=== PATIENT | male | born 1960 | race Two or more races ===

== ENCOUNTER 2025-03-14 16:27 | Inpatient (IN) | payer MEDICARE, OTHER ==
[~2025-03-14] VITALS: Ht 175.3 cm; Wt 93.0 kg
[2025-03-14 17:17] LABS: PLATELET COUNT (AUTO) 234 K/uL (150-450); RED BLOOD CELL COUNT(AUTO) 4.89 MIL/uL (4.5-6.0); RED CELL DISTRIBUTION WIDTH 23.8 % (11.5-15.0); WHITE BLOOD COUNT (AUTO) 5.4 K/uL (4.3-11.0)
[2025-03-14 17:18] LABS: APPEARANCE,URINE CLOUDY (CLEAR); BLOOD, URINE NEGATIVE Ery/uL (NEGATIVE); LEUKOCYTE ESTERASE ,URINE NEGATIVE (NEGATIVE); NITRITE, URINE NEGATIVE (NEGATIVE); UGLUCOSE NEGATIVE (NEGATIVE)
[2025-03-14 17:25] LABS: CALCIUM, SERUM 9.4 mg/dL (8.5-10.1); CREATININE 0.9 mg/dL (0.6-1.3); SODIUM SERUM 143 mmol/L (136-145); UREA NITROGEN, BLOOD 15 mg/dL (7-18)
[2025-03-14 17:30] LABS: ASPARTATE AMINOTRANSFERASE 25 U/L (15-37); TOTAL PROTEIN, SERUM 7.1 g/dL (6.4-8.2)
[2025-03-14 17:32] LABS: ADD URINE CULTURE NO; SQUAMOUS EPITHELIAL CELL,UR Few /HPF (None Seen)
[2025-03-14 17:33] LABS: AMPHETAMINE, URINE NEGATIVE (NEGATIVE); BARBITURATE, URINE NEGATIVE (NEGATIVE); BENZODIAZEPINE, URINE NEGATIVE (NEGATIVE); CANNABINOID, URINE NEGATIVE (NEGATIVE); COCCAINE, URINE NEGATIVE (NEGATIVE); OPIATE, URINE NEGATIVE (NEGATIVE); URINE AMORPHOUS URATE Many /HPF (None Seen)
[2025-03-14] MEDS ORDERED: TOPI100T38 PO (17:52)
[2025-03-14] MEDS ORDERED: APIX5TAB PO (17:52)
[2025-03-14] MEDS ORDERED: ACET-2030 PO (17:52)
[2025-03-14] MEDS ORDERED: OMEP40CA21 PO (17:52)
[2025-03-14] MEDS ORDERED: MONT10TA22 PO (17:52)
[2025-03-14] MEDS ORDERED: PARO30TA74 PO (17:52)
[2025-03-14] MEDS ORDERED: BENZ1TAB7 PO (17:52)
[2025-03-14] MEDS ORDERED: OXYC5TAB3 PO (17:52)
[2025-03-14] MEDS ORDERED: TAMS-12 PO (17:52)
[2025-03-14] MEDS ORDERED: ATOR40TA PO (17:52)
[2025-03-14] MEDS ORDERED: MAG HYDROX/AL HYDROX/SIMETH 30 ML UDC PO PRN (18:00)
[2025-03-14] MEDS ORDERED: MAGNESIUM HYDROXIDE 30 ML UDC PO PRN (18:00)
[2025-03-14] MEDS: HYDROCODONE/APAP 5/325MG TABLET PO PRN (18:09)
[2025-03-14] MEDS: BLOOD SUGAR DIAGNOSTIC 1 EACH STRIP IN ONE (18:21)
[2025-03-14] MEDS ORDERED: QUETIAPINE FUMARATE 25 MG TABLET PO PRN (18:30)
[2025-03-14] MEDS ORDERED: ZOLPIDEM TARTRATE 5 MG TABLET PO PRN (18:30)
[2025-03-14 20:00] VITALS: BP 139/89; TEMP 98.1; O2SAT 100
[2025-03-14 20:11] VITALS: BP 139/89; TEMP 98.1; O2SAT 100
[2025-03-15 07:36] LABS: ASPARTATE AMINOTRANSFERASE 19.0 U/L (15-37); CALCIUM, SERUM 8.7 mg/dL (8.5-10.1); CREATININE 0.7 mg/dL (0.6-1.3); LDL 55 mg/dL (0-99); SODIUM SERUM 148.0 mmol/L (136-145); TOTAL PROTEIN, SERUM 6.2 g/dL (6.4-8.2); UREA NITROGEN, BLOOD 16.0 mg/dL (7-18)
[2025-03-15 08:00] VITALS: BP 126/80; TEMP 98.4; O2SAT 94
[2025-03-15] MEDS: PANTOPRAZOLE 40 MG TABLET.DR PO SCH (08:26)
[2025-03-15] MEDS: NICOTINE PATCH (21MG) 21 MG PATCH.TD24 TD SCH (08:26)
[2025-03-15] MEDS: APIXABAN 5 MG TABLET PO SCH (08:27)
[2025-03-15] MEDS: HYDROCODONE/APAP 10/325MG TABLET PO PRN (12:12)
[2025-03-15 14:07] VITALS: O2SAT 93
[2025-03-15] MEDS: ALBUTEROL FS 2.5 MG/0.5 ML VIAL.NEB NEB PRN (14:07)
[2025-03-15 14:29] VITALS: O2SAT 98
[2025-03-15 16:01] VITALS: BP 128/77; TEMP 98; O2SAT 98
[2025-03-15] MEDS: MONTELUKAST SODIUM (10MG) 10 MG TABLET PO SCH (17:45)
[2025-03-15] MEDS: BENZTROPINE MESYLATE (1 MG) 1 MG TABLET PO SCH (17:46)
[2025-03-15] MEDS: ATORVASTATIN 40 MG TABLET PO SCH (17:46)
[2025-03-15] MEDS: TAMSULOSIN 0.4 MG CAP.SR.24H PO SCH (17:46)
[2025-03-15 18:45] LABS: CREATININE 1.0 mg/dL (0.6-1.3)
[2025-03-15 20:47] VITALS: BP 125/78; TEMP 97.8; O2SAT 95
[2025-03-15] MEDS: OLANZAPINE 2.5 MG TABLET PO SCH (21:23)
[2025-03-15] MEDS: DIVALPROEX SODIUM 125 MG TABLET.DR PO SCH (21:24)
[2025-03-16 08:00] VITALS: BP 116/80; TEMP 97.9; O2SAT 96
[2025-03-16 16:00] VITALS: BP 123/64; TEMP 97.8; O2SAT 97
[2025-03-16 20:17] VITALS: BP 113/65; TEMP 98.9; O2SAT 97
[2025-03-16] MEDS: GUAIFENESIN/D-METHORPHAN HB 5 ML UDC PO PRN (23:43)
[2025-03-17] MEDS: TEMAZEPAM 7.5 MG CAPSULE PO PRN (00:07)
[2025-03-17 08:00] VITALS: BP 133/71; TEMP 98.6; O2SAT 95
[2025-03-17] MEDS: ACETAMINOPHEN 325 MG TABLET PO PRN (13:02)
[2025-03-17 16:00] VITALS: BP 119/75; TEMP 98.8; O2SAT 97
[2025-03-17 20:17] VITALS: BP 112/93; TEMP 98.6; O2SAT 97
[2025-03-18 08:32] VITALS: BP 125/87; TEMP 97.8; O2SAT 97
[2025-03-18 16:00] VITALS: BP 139/70; TEMP 98.8; O2SAT 98
[2025-03-18 19:46] VITALS: BP 130/64; TEMP 98.8; O2SAT 98
[2025-03-18] MEDS: DIVALPROEX SODIUM 250 MG TABLET.DR PO SCH (20:33)
[2025-03-19 08:00] VITALS: BP 97/50; TEMP 97.8; O2SAT 94
[2025-03-19 12:22] VITALS: BP 118/99
[2025-03-19 16:09] VITALS: BP 117/100; TEMP 97.9; O2SAT 97
[2025-03-19 19:51] VITALS: BP 126/74; TEMP 99; O2SAT 94
[2025-03-20 08:00] VITALS: BP 127/69; TEMP 98.1; O2SAT 97
[2025-03-20 16:00] VITALS: BP 137/68; TEMP 98.6; O2SAT 98
[2025-03-20 20:00] VITALS: BP 151/61; TEMP 97.7; O2SAT 98
[2025-03-20] MEDS: OLANZAPINE 5 MG TABLET PO SCH (20:33)
[2025-03-21 08:00] VITALS: BP 111/66; TEMP 98.1; O2SAT 99
[2025-03-21 16:00] VITALS: BP 116/77; TEMP 98.2; O2SAT 97
[2025-03-22 08:00] VITALS: BP 129/66; TEMP 97.8; O2SAT 96
[2025-03-22] MEDS: DIVALPROEX SODIUM 500 MG TABLET.DR PO SCH (14:21)
[2025-03-22 16:00] VITALS: BP 108/68; TEMP 98.8; O2SAT 97
[2025-03-23 08:00] VITALS: BP 128/89; TEMP 97.7; O2SAT 93
[2025-03-23 16:00] VITALS: BP 115/62; TEMP 97.7; O2SAT 94
[2025-03-23 20:19] VITALS: BP 122/86; TEMP 98.2; O2SAT 94
[2025-03-24 07:51] VITALS: BP 101/69; TEMP 97.8; O2SAT 97
[2025-03-24 16:05] VITALS: BP 120/69; TEMP 97.8; O2SAT 97
[2025-03-24 21:05] VITALS: BP 138/90; TEMP 98.2; O2SAT 96
[2025-03-25 07:48] VITALS: BP 114/90; TEMP 97.8; O2SAT 99
[2025-03-25 15:03] VITALS: BP 110/75; TEMP 98.2; O2SAT 98
[2025-03-25 19:40] VITALS: BP 113/56; TEMP 98.4; O2SAT 97
[2025-03-25] MEDS: TRAZODONE 50 MG TABLET PO SCH (21:11)
[2025-03-26 08:00] VITALS: BP 136/91; TEMP 97.8; O2SAT 96
[2025-03-26 16:47] VITALS: BP 120/70; TEMP 98.2; O2SAT 95
[2025-03-26 20:01] VITALS: BP 149/66; TEMP 98; O2SAT 98
[2025-03-27 08:11] VITALS: BP 97/64; TEMP 98.1; O2SAT 98
[2025-03-27 16:00] VITALS: BP 119/65; TEMP 97.7; O2SAT 95
[2025-03-27 19:59] VITALS: BP 119/70; TEMP 97.7; O2SAT 97
[2025-03-28 08:00] VITALS: BP 100/59; TEMP 97.8; O2SAT 98
== END 2025-03-28 13:30 | DRG 885 ==
LOC: ER 16:37 → GPS 17:30
PROVIDERS: ADMIT Psychiatry & Neurology Psychiatry; ATTEND Internal Medicine
DX: F31.2 Bipolar disorder, current episode manic severe with psychotic features (principal); Z96.642 Presence of left artificial hip joint; F29 Unspecified psychosis not due to a substance or known physiological condition; N40.0 Benign prostatic hyperplasia without lower urinary tract symptoms; K21.9 Gastro-esophageal reflux disease without esophagitis; F39 Unspecified mood [affective] disorder; G31.84 Mild cognitive impairment of uncertain or unknown etiology; E78.5 Hyperlipidemia, unspecified; I10 Essential (primary) hypertension; G89.29 Other chronic pain; Z79.899 Other long term (current) drug therapy; Z79.01 Long term (current) use of anticoagulants; Z88.0 Allergy status to penicillin; Z87.891 Personal history of nicotine dependence; Z91.81 History of falling; Z68.30 Body mass index [BMI] 30.0-30.9, adult; E66.9 Obesity, unspecified; F41.9 Anxiety disorder, unspecified; R27.8 Other lack of coordination; R53.1 Weakness; F19.11 Other psychoactive substance abuse, in remission
CPT/HCPCS: 36415; 80048-TC; 80053-TC; 80061-TC; 80076-TC; 80164-TC; 81001; 82565-TC; 85025-TC; 87081-TC; 97116-TC; 97530-TC

== ENCOUNTER 2025-05-18 16:02 | Emergency (ER) | payer MEDICARE, OTHER ==
[~2025-05-18] VITALS: Ht 175.3 cm; Wt 93.0 kg
[~2025-05-18 16:02] MED LIST: ACET-2030 PO; APIX5TAB PO; ATOR40TA PO; BENZ1TAB7 PO; MONT10TA22 PO; OMEP40CA21 PO; OXYC5TAB3 PO; PARO30TA74 PO; TAMS-12 PO; TOPI100T38 PO
[2025-05-18 16:07] VITALS: TEMP 98.2
[2025-05-18] MEDS ORDERED: CYCL5TAB PO (16:20)
[2025-05-18] MEDS ORDERED: KETOROLAC TROMETHAMINE INJ 30 MG/ML VIAL ONE (16:28)
[2025-05-18] MEDS ORDERED: CYCLOBENZAPRINE 10 MG TABLET ONE (16:29)
[2025-05-18] MEDS: CYCLOBENZAPRINE 10 MG TABLET PO ONE (16:30)
[2025-05-18] MEDS: KETOROLAC TROMETHAMINE INJ 30 MG/ML VIAL IM ONE (16:40)
[2025-05-18 18:30] VITALS: BP 111/88
[2025-05-18 18:40] VITALS: O2SAT 97
== END 2025-05-18 19:09 ==
LOC: ER 16:17
DX: M54.50 Low back pain, unspecified (principal); I10 Essential (primary) hypertension; G89.29 Other chronic pain; Z79.01 Long term (current) use of anticoagulants; Z79.899 Other long term (current) drug therapy; Z88.0 Allergy status to penicillin; Z96.642 Presence of left artificial hip joint
CPT/HCPCS: 99285; 96372; J1885